=== PATIENT | male | born 1970 | race Asian ===

== ENCOUNTER 2019-10-06 21:11 | Emergency (ER) | payer SELFPAY ==
[~2019-10-06] VITALS: Ht 167.6 cm; Wt 68.0 kg
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
--- NOTE | 2019-10-06 21:20 | NUR ---
[facility] is here
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
[2019-10-06 21:30] VITALS: BP 120/78
[2019-10-06] MEDS ORDERED: Acetaminophen 500mg (ES) tab ORAL ONE (21:30)
[2019-10-06] MEDS ORDERED: Tetanus/Diptheria/Pertussis IM ONE (21:30)
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
[2019-10-06 23:14] VITALS: BP 116/96
--- NOTE | 2019-10-06 23:14 | NUR ---
ED Nurse Note: pt is cleared to be d/c per ERMD, pt discharge and aftercare instruction provided, pt education done via discussion and handout, pt verbalized understanding, pt advised to follow up with pcp or return to ed if changes in condition, vss, ambulatory w/ steady gait, left w/ all belongings.
== END 2019-10-06 23:14 | disposition home or self-care (01) ==
LOC: EDBD 21:11 → EMR 21:41
DX: S01.01XA Laceration without foreign body of scalp, initial encounter (principal); M48.9 Spondylopathy, unspecified; S00.83XA Contusion of other part of head, initial encounter; Y04.2XXA Assault by strike against or bumped into by another person, initial encounter; Y93.9 Activity, unspecified; Y92.9 Unspecified place or not applicable; F17.200 Nicotine dependence, unspecified, uncomplicated; Z23 Encounter for immunization
CPT/HCPCS: 70450; 70486; 72125; 90471; 90715; 99284